=== PATIENT | female | born 1965 ===

== ENCOUNTER 2021-12-07 08:38 | Outpatient (REF) | payer MEDICARE, MEDICAID, SELFPAY ==
--- NOTE | ~2021-12-07 | FL_ITS ---
EXAMINATION: XR FLUOROSCOPY UPPER GI WITH AIR CLINICAL INFORMATION: Recurrent nausea, gastritis. COMPARISON: None TECHNIQUE: Routine upper GI air-contrast study was performed in upright and lying position. FINDINGS: Following oral administration of thick barium and effervescent granules in upright view and different positions, there is normal propagation of bolus from the oral cavity through the pharynx and esophagus and into the stomach without any evidence of obstruction, narrowing or stricture. The course, caliber and peristalsis of stomach, duodenal bulb and the sweep are normal. There is a mild gastroesophageal reflux without hiatal hernia. The mucosal pattern of the esophagus, stomach and the duodenum is normal. FLUOROSCOPY TIME: 1.7 minutes DOSE AREA PRODUCT: 9.147 uGy-m2 (microgray-meter squared) FL/FL upper GI w air IMPRESSION: Mild gastroesophageal reflux without hiatal hernia.
== END 2021-12-07 08:39 | disposition home or self-care (01) ==
LOC: HO.XRAY 08:38
PROVIDERS: Visit Provider Specialist
DX: K29.70 Gastritis, unspecified, without bleeding (principal); R11.0 Nausea
CPT/HCPCS: 74246

== ENCOUNTER 2022-02-03 | Outpatient (REF) | payer MEDICARE, MEDICAID, SELFPAY ==
[2022-02-03 09:19] LABS: MANUAL DIFF FLAG NO
[2022-02-03 09:26] LABS: Basophils Percent Auto 0.4 % (0-2); Eosinophils Absolute Auto 0.1 X10*3/uL (0.0-0.4); Eosinophils Percent Auto 1.3 % (0-4); Hematocrit 38.9 % (37.0-47.0); Hemoglobin 13.1 g/dl (12.0-16.0); Imm Gran Abs Auto 0.03 X10*3/uL (0.00-0.03); Imm Gran Pct Auto 0.4 % (0.0-0.4); Lymphocytes Absolute Auto 2.3 X10*3/uL (1.2-4.9); Lymphocytes Percent Auto 32.7 % (20-40); Mean Corpuscular HGB Conc 33.7 g/dl (31.0-35.0); Mean Corpuscular Hemoglobin 31.4 pg (27.0-33.0); Mean Corpuscular Volume 93.3 fL (80.0-98.0); Mean Platelet Volume 11.6 fL (9.4-12.3); Monocytes Absolute Auto 0.9 X10*3/uL (0.1-1.2); Monocytes Percent Auto 13.3 % (2-11); Neutrophils Absolute Auto 3.6 x10*3/uL (2.0-8.3); Neutrophils Percent Auto 51.9 % (45-73); Platelet Count 275 X10*3/uL (160-400); Red Blood Count 4.17 X10*6/uL (4.20-5.50); Red Cell Distribution Width 12.6 % (11.0-16.0)
[2022-02-03 09:41] LABS: Alanine Aminotransferase 19 U/L (0-31); Albumin Level 3.9 g/dL (3.5-5.0); Alkaline Phosphatase 63 U/L (39-117); Aspartate Amino Transferase 25 U/L (5-31); Bilirubin Direct 0.2 mg/dL (0.0-0.5); Bilirubin Total 0.7 mg/dL (0.0-1.0); Total Protein 5.7 g/dL (6.5-8.0)
[2022-02-03 09:42] LABS: Albumin Level 3.8 g/dL (3.5-5.0); Anion Gap 13 (12-20); Blood Urea Nitrogen 12 mg/dL (9-16); Calcium 9.3 mg/dL (8.4-10.2); Carbon Dioxide 28 mmol/L (22-29); Chloride 105 mmol/L (96-108); Cholesterol 181 mg/dL; Estimated Glomerular Filt Rate 44; Glucose Random 78 mg/dL (60-115); HDL Cholesterol 46 mg/dL; LDL Cholesterol Calculated 113 mg/dl; Magnesium 2.3 mg/dL (1.6-2.6); Potassium 4.4 mmol/L (3.3-5.1); Sodium 142 mmol/L (135-145); Triglycerides 111 mg/dL
[2022-02-03 10:03] LABS: Ferritin 285 ng/mL (10-250); Free T4 (Free Thyroxine) 1.03 ng/dL (0.71-1.85); Thyroid Stimulating Hormone 1.46 uIU/mL (0.32-4.0); Vitamin D 25-OH Total 95.8 ng/mL (>30)
[2022-02-04 14:37] LABS: Calcium (PTHI) 9.4 mg/dL (8.6-10.4); PTHI 20 pg/mL (16-77)
== END 2022-02-03 00:01 | disposition home or self-care (01) ==
LOC: HO.WMHL
PROVIDERS: Visit Provider Specialist
DX: G35 Multiple sclerosis (principal); E78.5 Hyperlipidemia, unspecified; I10 Essential (primary) hypertension; D64.9 Anemia, unspecified; E55.9 Vitamin D deficiency, unspecified
CPT/HCPCS: 36415; 80048; 80061; 80076; 82040; 82306; 82728; 83735; 83970; 84439; 84443; 84550; 85025

== ENCOUNTER 2022-02-03 09:29 | Outpatient (REF) | payer MEDICARE, MEDICAID, SELFPAY ==
[2022-02-03 09:55] LABS: Appearance Urine CLEAR; Color Urine YELLOW; Glucose Urine UA NEG (NEG); Leukocyte Esterase Urine 1+ (NEG); Nitrite Urine NEG (NEG); Specific Gravity - Urine <= 1.005 (1.005-1.025); Urine Blood NEG (NEG); Urine Ketones NEG (NEG); Urine Protein NEG (NEG-TRACE)
[2022-02-03 10:20] LABS: Bacteria Urine 1+ /LPF
[2022-02-03 10:22] LABS: RBC Urine 0 /HPF (0)
[2022-02-03 10:23] LABS: Squamous Epithelial Cell Urine 1+ /LPF
[2022-02-03 10:48] LABS: Creatinine Urine 58.24 mg/dL
[2022-02-09 15:05] LABS: Citric Acid, Random Urine 796 mg/g creat (125-900); Creatinine, Random Urine 61 mg/dL (20-275)
== END 2022-02-03 09:30 | disposition home or self-care (01) ==
LOC: HO.LNP 09:29
PROVIDERS: Visit Provider Specialist
DX: G35 Multiple sclerosis (principal); E78.5 Hyperlipidemia, unspecified; I10 Essential (primary) hypertension
CPT/HCPCS: 81001; 82507; 87086

== ENCOUNTER 2022-05-06 17:46 | Outpatient (REF) | payer MEDICARE, MEDICAID, SELFPAY | END 2022-05-06 17:47 | disposition home or self-care (01) | LOC: HO.LNP 17:46 | PROVIDERS: Visit Provider Nurse Practitioner | DX: G35 Multiple sclerosis (principal) | CPT/HCPCS: 81001; 87086 ==

== ENCOUNTER 2023-05-08 14:05 | Outpatient (REF) | payer MEDICARE, MEDICAID, SELFPAY | END 2023-05-08 14:06 | disposition home or self-care (01) | LOC: HO.LNP 14:05 | PROVIDERS: Visit Provider Nurse Practitioner Adult Health | DX: G35 Multiple sclerosis (principal) | CPT/HCPCS: 87086 ==

== ENCOUNTER 2023-10-09 12:08 | Outpatient (REF) | payer MEDICARE, MEDICAID, SELFPAY | END 2023-10-09 12:09 | disposition home or self-care (01) | LOC: HO.WMHL 12:08 | PROVIDERS: Visit Provider Nurse Practitioner Acute Care | DX: Z13.89 Encounter for screening for other disorder (principal) | CPT/HCPCS: 36415; 80053; 85025 ==

== ENCOUNTER 2023-11-06 19:01 | Outpatient (REF) | payer MEDICARE, MEDICAID, SELFPAY | END 2023-11-06 19:02 | disposition home or self-care (01) | LOC: HO.WMHL 19:01 | PROVIDERS: Visit Provider Nurse Practitioner Adult Health | DX: Z13.89 Encounter for screening for other disorder (principal) | CPT/HCPCS: 81001; 87086 ==

== ENCOUNTER 2024-01-30 11:00 | Outpatient (AMB) | payer MEDICARE, MEDICAID, SELFPAY ==
--- NOTE | 2024-01-30 10:45 | AM.OFFVISNUR ---
Intake Intake Visit Reasons: ENP-MS w/Lesions-Unable to lvm Intake Note: Pt presents to the office for new pt evaluation for MS. Radiological Metallurgist Required: No Allergies morphine Allergy (Mild, Verified 01/30/24 11:05) Confusion Coding
[2024-01-30 11:13] VITALS: BP 152/96; PULSE 76; RESP 17; BMI 19.4
--- NOTE | 2024-01-30 11:21 | A.OFFVIS_ITS ---
Intake Vital Signs 01/30/24 11:13 01/30/24 11:24 Height 5 ft 2 in Weight 106 lb BMI 19.4 19.4 BP 152/96 H Blood Pressure Location Rt brachial Position Sitting Respiration 17 Pulse 76 Pulse Source Palpation Intake Visit Reasons: ENP-MS w/Lesions-Unable to lvm Intake Note: Pt presents for new pt evaluation for MS. Heel Slicker Required: No Allergies morphine Allergy (Mild, Verified 01/30/24 11:22) Confusion HPI HPI Comments History of Present Illness Details 58y/o Right handed female with Primary P rogressive Multiple Sclerosis diagnosed 22 years ago and has been at the [facility] for 18 years. She was seen at [facility] ( Kristin Rodriguez,CARLOS and Dr.Phil Gomez) and has been on Ocrevus for past 4 years. she wanted to switch neurologists as Kristin Rodriguez retired. She has been stable since starting Ocrevus and is on solumedrol 500mg q 4 weeks Her current status EDSS 6.5 Vision - wears trifocals Speech- mild dysarthria Memory- good Swallowing- good No double vision No vertigo Hand function - normal Gait- in wheel chair, can transfer and walks 250 ft with walker with a PT 2 times a week Bladder and Bowel control - good She has h/o of CVA , H/o MCA aneurysm - no further details available [facility] Medical History (Updated 01/30/24 @ 11:46 by Jeanine Lara MD) Progressive multiple sclerosis Hyperlipidemia Presbyopia Optic atrophy HTN (hypertension) Cerebral aneurysm Depression CVA (cerebral vascular accident) Anxiety Osteoporosis Surgical History (Updated 01/30/24 @ 11:23 by Xochilt Caldwell CMA) History of back surgery Social History (Updated 01/30/24 @ 11:23 by Xochilt Caldwell CMA) Household Members: None Housing: House Alcohol intake: never Patient Tobacco Use Status: Never used Tobacco Use of substances other than those prescribed or required for medical reasons: No Physical Exam Vital Signs: Last Vital Signs Pulse 76 01/30/24 11:13 Resp 17 01/30/24 11:13 BP 152/96 H 01/30/24 11:13 BMI result Body Mass Index 19.4 Const General: cooperative and no acute distress Nutritional Appearance: average body habitus Orientation/consciousness: patient oriented x3 Limitations: wheelchair Eyes Pupils: Equal, round and reactive pupils present Neuro Other: Left LE- 3/5 Increased tone General: patient oriented x3 and Unable to assess gait Cranial nerves: Yes Facial sensation intact/muscles of mastication intact, Yes Equal, round and reactive pupils present, Yes Bilaterally intact EOM present, Yes Nystagmus not present, Yes Normal facial strength present and Yes Midline tongue present Cognition (Neuro): normal cognition Speech: Other speech findings present (Neuro) (mild slurring) Gait exam (Neuro): Unable to assess gait Deep tendon reflexes (DTR's): Right triceps reflex intensity grade: 2+, Left tri ceps reflex intensity grade: 3+, Rt Biceps (C5, C6): 2+, Left biceps reflex intensity grade: 3+, Right brachioradialis reflex intensity grade: 2+, Left brachioradialis reflex intensity grade: 3+, Right patellar reflex intensity grade: 2+, Left patellar reflex intensity grade: 4+ and Left ankle reflex intensity grade: 4+ Coordination: other (mild past pointing) Assessment & Plan Assessment & Plan (1) Progressive multiple sclerosis: Code(s): G35 - Multiple sclerosis Plan She will benefit from seeing a MS specialist for further management. I will refer her to [facility] for furtehr management. Orders: Referrals Neurology Referral G35 - Multiple sclerosis Coding Level of Care Code New Pt Level 4 (92014) Diagnoses Progressive multiple sclerosis G35
[2024-01-30 11:24] VITALS: BMI 19.4
== END 2024-01-30 11:55 | disposition home or self-care (01) ==
PROVIDERS: PCP Nurse Practitioner Acute Care; Visit Provider Psychiatry & Neurology Neurology
DX: G35 Multiple sclerosis (principal)
CPT/HCPCS: 99204

== ENCOUNTER → 2024-01-30 11:00 | Outpatient (BNVA) | payer MEDICARE, MEDICAID, SELFPAY | PROVIDERS: PCP Nurse Practitioner Acute Care; Visit Provider Psychiatry & Neurology Neurology | DX: G35 Multiple sclerosis (principal) | CPT/HCPCS: 99202 ==